=== PATIENT | female | born 1955 | race Caucasian/White ===

== ENCOUNTER 2023-05-25 09:45 | Outpatient (RCR) | payer MEDICARE, SELFPAY | END 2023-05-26 12:47 | disposition home or self-care (01) | LOC: PURB 09:45 | PROVIDERS: ATTENDING PHYSICIAN Internal Medicine Critical Care Medicine; FAMILY PHYSICIAN Internal Medicine | DX: J44.9 Chronic obstructive pulmonary disease, unspecified (principal) | CPT/HCPCS: 94625 ==

== ENCOUNTER 2023-06-22 09:30 | Outpatient (RCR) | payer MEDICARE, SELFPAY | END 2023-06-22 23:59 | disposition home or self-care (01) | LOC: PURB 09:30 | PROVIDERS: ATTENDING PHYSICIAN Internal Medicine Critical Care Medicine; FAMILY PHYSICIAN Internal Medicine | DX: J44.9 Chronic obstructive pulmonary disease, unspecified (principal) | CPT/HCPCS: 94625 ==

== ENCOUNTER 2023-07-22 09:30 | Outpatient (RCR) | payer MEDICARE, SELFPAY | END 2023-07-23 10:13 | disposition home or self-care (01) | LOC: PURB 09:30 | PROVIDERS: ATTENDING PHYSICIAN Internal Medicine Critical Care Medicine; FAMILY PHYSICIAN Internal Medicine | DX: J44.9 Chronic obstructive pulmonary disease, unspecified (principal) | CPT/HCPCS: 94625 ==

== ENCOUNTER → 2023-08-05 | Outpatient (REF) | payer MEDICARE, SELFPAY | LOC: DHSLP | PROVIDERS: ATTENDING PHYSICIAN Internal Medicine; FAMILY PHYSICIAN Internal Medicine | DX: G47.33 Obstructive sleep apnea (adult) (pediatric) (principal); G47.61 Periodic limb movement disorder; G47.00 Insomnia, unspecified; R09.02 Hypoxemia | CPT/HCPCS: 95810 ==

== ENCOUNTER → 2024-01-10 06:16 | Day surgery (SDC) | payer MEDICARE, SELFPAY | LOC: GI 06:16 | PROVIDERS: ATTENDING PHYSICIAN Internal Medicine Gastroenterology | DX: Z12.11 Encounter for screening for malignant neoplasm of colon (principal); D12.2 Benign neoplasm of ascending colon; K57.30 Diverticulosis of large intestine without perforation or abscess without bleeding; K64.8 Other hemorrhoids; Z98.0 Intestinal bypass and anastomosis status | CPT/HCPCS: 45385; 88305 ==

== ENCOUNTER → 2024-05-11 15:18 | Outpatient (REF) | payer MEDICARE, SELFPAY | LOC: WDC 15:18 | PROVIDERS: ATTENDING PHYSICIAN Internal Medicine | DX: Z12.31 Encounter for screening mammogram for malignant neoplasm of breast (principal) | CPT/HCPCS: 77063; 77067 ==

== ENCOUNTER 2024-09-11 09:41 | Inpatient (IN) | payer MEDICARE, SELFPAY ==
[2024-08-22 11:33] LABS: Hematocrit 37.5 % (37.0-47.0); Hemoglobin 12.7 g/dL (12.0-16.0); Mean Corp Hgb Conc. 33.9 g/dL (33.0-37.0); Mean Corpuscular Hgb 29.6 pg (27.0-31.0); Mean Corpuscular Volume 87.4 fL (81.0-99.0); Platelet Count 242 10^3/uL (130-400); Red Blood Cell Count 4.29 10^6/uL (4.20-5.40); Red Cell Dist. Width 12.5 % (11.5-14.5); White Blood Cell Count 9.3 10^3/uL (4.8-10.8)
[2024-08-22 11:52] LABS: ALT (SGPT) 15 U/L (0-35); AST (SGOT) 18 U/L (14-36); Albumin 3.9 g/dl (3.5-5.0); Alkaline Phosphatase 49 U/L (38-126); Blood Urea Nitrogen 15 mg/dl (7-17); Carbon Dioxide 26 mmol/L (22-30); Chloride 107 mmol/L (98-107); Glucose 95 mg/dl (70-99); Potassium 4.3 mmol/L (3.5-5.1); Sodium 143 mmol/L (135-145); Total Bilirubin 1.9 mg/dl (0.2-1.3); Total Protein 6.2 g/dl (6.3-8.2); eGFR > 60.00
[2024-08-22 13:30] LABS: Glycohemoglobin (HgbA1c) 4.9 % (4.0-5.6)
[2024-08-22 13:43] VITALS: BMI 35.2
[2024-08-24 11:57] VITALS: BMI 35.2
[2024-09-11] VITALS (12 sets, daily range): BP systolic 104–156; BP diastolic 64–93; PULSE 87; O2SAT 93; BMI 35.2
[2024-09-11] MEDS: TYLENOL 650 MG PO ×3 (09:53→19:40)
[2024-09-11] MEDS: CELEBREX 200 MG PO (09:53)
[2024-09-11] MEDS: NORMOSOL-R/PLASMALYTE-A 1000 IV ×2 (10:12→15:00)
--- NOTE | 2024-09-11 14:20 | W.PN.ORTHO ---
Today's Communication / Plan
-
d/c when stable
Assessment
.
Dressing:
Clean, dry and intact.
Assessment:
Due to chronic dyspnea on exertion, obstructive sleep apnea,
history of tobacco abuse with COPD, we will provide incentive----
spirometry, standing order nebulizers and IV Decadron for pain and
lung perfusion.
Plan
.
Surgery / Date: R TKA 09/11/24
DVT Prophylaxis: Aspirin
Activity:
Out of bed.
PT/OT
Discharge Plan: Home w/ Outpatient PT
Vital Signs and Labs
.
Vital Signs and Labs:
Lab Results
08/22/24 10:51
08/22/24 10:51
Temp Pulse Resp BP Pulse Ox
98.4 F 75 16 156/73 97
09/11/24 09:39 09/11/24 09:39 09/11/24 09:39 09/11/24 09:39 09/11/24 09:39
--- NOTE | 2024-09-11 14:25 | W.DS.TRANS ---
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
-
Discharge Instructions:
Discharge Diagnosis/Procedures R TKA 09/11/24
Diet As tolerated
Activity With Walker
Additional Activity Adequate hydration, minimize Oxy and wear TEDs
stockings to prevent low blood pressure/
dizziness
Driving Restrictions No driving
Bathing Restrictions OK to Shower
Other Services PT
Instructions:
Stand-Alone Forms: Total Hip/Knee Replacement D/C
Changes to Home Medications: Yes
Discharge Medications:
DC Medications w/original date entered in [employer]
levothyroxine 112 mcg tablet 112 mcg PO DAILY AT 0700 06/18/16
albuterol sulfate 90 mcg/actuation aerosol inhaler (Ventolin HFA) 2 puff inhalation Q4H PRN SOB 06/02/18
amlodipine 2.5 mg tablet 5 mg PO DAILY 09/05/20
atorvastatin 10 mg tablet 10 mg PO HS 08/18/24
escitalopram oxalate 20 mg tablet 20 mg PO DAILY 08/18/24
fluticasone fur. 200 mcg-umeclid 62.5 mcg-vilant 25 mcg inhalat.powder (Trelegy Ellipta) 1 inh inhalation HS 08/18/24
tirzepatide (weight loss) 10 mg/0.5 mL subcutaneous pen injector (Zepbound) 10 mg SC .Q Wednesday08/18/24
mupirocin 2 % topical ointment 1 applic topical BID infection prevention #1 tube 08/22/24
celecoxib 200 mg capsule 200 mg PO DAILY Anti-inflammatory #14 caps 08/23/24
dexamethasone 4 mg tablet 4 mg PO BID inflammation #6 tabs 08/23/24
famotidine 20 mg tablet 20 mg PO HS GI prophylaxis #30 tabs 08/23/24
gabapentin 300 mg capsule 300 mg PO HS sleep/pain #10 caps 08/23/24
ondansetron 4 mg disintegrating tablet 4 mg PO Q6H PRN n/v #20 tabs 08/23/24
oxycodone 5 mg tablet 5 mg PO Q6H PRN 1 tab moderate pain, 2 tabs severe pain #30 tabs 08/23/24
acetaminophen 325 mg tablet (Tylenol) 650 mg (2 x 325 mg) PO QID #1 tab 09/11/24
aspirin 325 mg tablet 325 mg PO DAILY blood clot prevention #1 tab 09/11/24
docusate sodium 100 mg capsule (Colace) 100 mg PO BID stool softner #1 cap 09/11/24
losartan 100 mg tablet (Cozaar) 100 mg PO DAILY #0 tabs 09/11/24
magnesium hydroxide 400 mg/5 mL oral suspension (Milk of Magnesia) 30 ml PO HS PRN constipation #1 mL 09/11/24
sennosides 8.6 mg tablet (Senokot) 17.2 mg (2 x 8.6 mg) PO BID laxative #2 tabs 09/11/24
Home Medication Changes
mupirocin 2 % topical ointment 1 applic topical BID infection prevention #1 tube 08/22/24
celecoxib 200 mg capsule 200 mg PO DAILY Anti-inflammatory #14 caps 08/23/24
dexamethasone 4 mg tablet 4 mg PO BID inflammation #6 tabs 08/23/24
famotidine 20 mg tablet 20 mg PO HS GI prophylaxis #30 tabs 08/23/24
gabapentin 300 mg capsule 300 mg PO HS sleep/pain #10 caps 08/23/24
ondansetron 4 mg disintegrating tablet 4 mg PO Q6H PRN n/v #20 tabs 08/23/24
oxycodone 5 mg tablet 5 mg PO Q6H PRN 1 tab moderate pain, 2 tabs severe pain #30 tabs 08/23/24
acetaminophen 325 mg tablet (Tylenol) 650 mg (2 x 325 mg) PO QID #1 tab 09/11/24
aspirin 325 mg tablet 325 mg PO DAILY blood clot prevention #1 tab 09/11/24
docusate sodium 100 mg capsule (Colace) 100 mg PO BID stool softner #1 cap 09/11/24
losartan 100 mg tablet (Cozaar) 100 mg PO DAILY #0 tabs 09/11/24
magnesium hydroxide 400 mg/5 mL oral suspension (Milk of Magnesia) 30 ml PO HS PRN constipation #1 mL 09/11/24
sennosides 8.6 mg tablet (Senokot) 17.2 mg (2 x 8.6 mg) PO BID laxative #2 tabs 09/11/24
Pending Results: No
[2024-09-11] MEDS: DILAUDID 0.5 MG IV (15:11)
[2024-09-11] MEDS: ROXICODONE 5 MG PO (15:30)
[2024-09-11] MEDS: SYNTHROID PO (16:34)
[2024-09-11] MEDS: LEXAPRO 20 MG PO (16:34)
--- NOTE | 2024-09-11 16:47 | PTCARENOTE ---
Pt arrived to [facility] from PACU in a bed. Pt on 2L of O2 at 95%. Right knee with primaseal dressing and small shadowing. IVF infusing at 100cc. Pt oriented to room and call diego. Bed locked and in lowest position. Care ongoing.
[2024-09-11] MEDS: ASPIRIN 325 MG PO (17:13)
[2024-09-11] MEDS: ROXICODONE 10 MG PO (19:02)
[2024-09-11] MEDS: COLACE 100 MG PO (19:39)
[2024-09-11] MEDS: SENOKOT 17.2 MG PO (19:40)
[2024-09-11] MEDS: SYMBICORT 160/4.5 MCG INHALER 2 PUFF INH (19:41)
[2024-09-11] MEDS: DECADRON 4 MG IV (19:41)
[2024-09-11] MEDS: DUONEB 3 ML INH (19:41)
[2024-09-11] MEDS: PEPCID 20 MG PO (21:04)
[2024-09-11] MEDS: LIPITOR 10 MG PO (21:04)
[2024-09-11] MEDS: BACTROBAN 2% OINTMENT 1 APPLIC NASAL (21:04)
[2024-09-11] MEDS: NEURONTIN 300 MG PO (21:04)
[2024-09-11] MEDS: ANCEF 5 IV (21:04)
[2024-09-12] MEDS: TYLENOL 650 MG PO ×3 (00:15→07:52)
[2024-09-12 03:00] VITALS: BP 132/84
[2024-09-12] MEDS: ROXICODONE 5 MG PO (04:43)
[2024-09-12] MEDS: ANCEF 5 IV (05:59)
[2024-09-12] MEDS: SYNTHROID 112 MCG PO (05:59)
[2024-09-12] MEDS: DUONEB 3 ML INH (07:19)
[2024-09-12] MEDS: SYMBICORT 160/4.5 MCG INHALER 2 PUFF INH (07:20)
[2024-09-12] MEDS: SPIRIVA RESPIMAT 2.5 MCG 2 PUFF INH (07:20)
[2024-09-12 07:32] VITALS: BP 115/74
[2024-09-12] MEDS: LEXAPRO 20 MG PO (07:52)
[2024-09-12] MEDS: CELEBREX 200 MG PO (07:52)
[2024-09-12] MEDS: ASPIRIN 325 MG PO (07:52)
[2024-09-12] MEDS: SENOKOT 17.2 MG PO (07:52)
[2024-09-12] MEDS: BACTROBAN 2% OINTMENT 1 APPLIC NASAL (07:53)
[2024-09-12] MEDS: COLACE 100 MG PO (07:53)
[2024-09-12] MEDS: DECADRON 4 MG IV (07:53)
[2024-09-12] MEDS: COZAAR 25 MG PO (08:02)
[2024-09-12] MEDS: NORVASC 5 MG PO (08:02)
[2024-09-12] MEDS: ROXICODONE 10 MG PO (08:52)
[2024-09-12 09:44] VITALS: BP 126/67; PULSE 78; O2SAT 96
--- NOTE | 2024-09-12 09:51 | CM ---
CM following re: discharge planning.
Reviewed pt's chart, met with pt.
Pt is a 69 year old female, admitted with primary dx of POD#1 R TKA. Per MD pt is doing well and will be discharged home today and outpatient therapy recommended. Pt is aware, expressed her agreement and she stated she has an appointment for
outpatient therapy at [facility] tomorrow at 11:00 a.m. IMM reviewed, placed on chart, pt has a copy. Pt stated he will transport home
Pt reports she live with 2SH, 6 steps to enter, has supportive children. Pt reports she has a walker, cane, raised toilet seat.
Please provide as script for outpatient therapy: PT, OT
PCP: Olivia Cesar
Pharmacy: [facility].
D/C plan: home with outpatient therapy at [facility] and family support. to transport.
--- NOTE | 2024-09-12 10:05 | W.PN.ORTHO ---
Today's Communication / Plan
-
d/c
Assessment
.
Distal Motor Intact: Yes
Dressing:
Clean, dry and intact.
Assessment:
Due to chronic dyspnea on exertion, obstructive sleep apnea,
history of tobacco abuse with COPD, we will provide incentive----
spirometry, standing order nebulizers and IV Decadron for pain and
lung perfusion.
--O2 sats stable on RA
Plan
.
Surgery / Date: R TKA 09/11/24
DVT Prophylaxis: Aspirin
Activity:
Out of bed.
PT/OT
Discharge Plan: Home w/ Outpatient PT
Subjective
.
.:
Patient resting comfortably.
Vital Signs and Labs
.
Vital Signs and Labs:
Lab Results
08/22/24 10:51
08/22/24 10:51
Temp Pulse Resp BP Pulse Ox
98.6 F 79 17 150/66 97
09/12/24 07:32 09/12/24 08:02 09/12/24 07:32 09/12/24 08:02 09/12/24 08:45
Non-invasive Hgb result: 12
Physical Exam
-
HEENT: No pallor, cyanosis, or jaundice. Throat clear.
NECK: Supple. No JVD.
RESPIRATORY: Lungs clear to auscultation.
CVS: S1, S2 normal. RRR.� No murmur, rub or gallop.
ABDOMEN: Soft, non-tender. No distension. BS+/normal.
EXTREMITIES: strength equal, no calf pain with palpation
UNSCRAMBLER: AOx3. No focal deficits. 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
[2024-09-12 11:14] VITALS: BP 128/66; PULSE 71; O2SAT 94
[2024-09-12 11:22] VITALS: BP 126/64
== END 2024-09-12 12:31 | disposition home or self-care (01) | DRG 470 ==
LOC: 2 SOUTH 09:41
PROVIDERS: ADMITTING PHYSICIAN Specialist; FAMILY PHYSICIAN Internal Medicine
PROC: 0SRC0J9 Replacement of Right Knee Joint with Synthetic Substitute, Cemented, Open Approach (ICD-10-PCS; 2024-09-11)
DX: M17.11 Unilateral primary osteoarthritis, right knee (principal); Z68.35 Body mass index [BMI] 35.0-35.9, adult; E66.9 Obesity, unspecified; Z96.643 Presence of artificial hip joint, bilateral; G47.33 Obstructive sleep apnea (adult) (pediatric); Z87.891 Personal history of nicotine dependence; J44.9 Chronic obstructive pulmonary disease, unspecified; E03.9 Hypothyroidism, unspecified; F32.A Depression, unspecified; F41.9 Anxiety disorder, unspecified; E78.5 Hyperlipidemia, unspecified; I10 Essential (primary) hypertension
CPT/HCPCS: 36415; 73560; 80053; 83036; 85027; 87070; 94640; 97110; 97116; 97162; 97167; 97530; C1713; C1776

== ENCOUNTER 2025-01-08 11:25 | Inpatient (IN) | payer MEDICARE, SELFPAY ==
--- NOTE | 2024-12-12 14:31 | CM ---
Demographics: confirmed
Living situation: lives with , independent
Support Person Post Operatively:
History of
VN: NO
SNF: NO
Outpatient: [facility], scheduled 01/10
Has patient purchased required equipment: patient has equipment from previous surgery
PCP: Dr. Olivia Cesar
Pharmacy: [facility]
Post Operative Discharge Plan: Home with for support, [facility] scheduled for 01/10
[2024-12-19 11:40] LABS: Hematocrit 39.3 % (37.0-47.0); Hemoglobin 12.7 g/dL (12.0-16.0); Mean Corp Hgb Conc. 32.3 g/dL (33.0-37.0); Mean Corpuscular Volume 85.4 fL (81.0-99.0); Platelet Count 250 10^3/uL (130-400); Red Cell Dist. Width 13.4 % (11.5-14.5)
[2024-12-19 12:06] LABS: ALT (SGPT) 16 U/L (0-35); AST (SGOT) 20 U/L (14-36); Albumin 4.5 g/dl (3.5-5.0); Alkaline Phosphatase 57 U/L (38-126); Blood Urea Nitrogen 19 mg/dl (7-17); Calcium 10.2 mg/dl (8.4-10.2); Carbon Dioxide 27 mmol/L (22-30); Chloride 103 mmol/L (98-107); Glucose 90 mg/dl (70-99); Potassium 5.1 mmol/L (3.5-5.1); Sodium 137 mmol/L (135-145); Total Protein 6.8 g/dl (6.3-8.2); eGFR > 60.00
[2024-12-19 13:22] LABS: Glycohemoglobin (HgbA1c) 5.0 % (4.0-5.6)
[2024-12-19 14:18] VITALS: BMI 32.0
[2024-12-19 16:06] VITALS: BMI 32.0
[2025-01-08] VITALS (12 sets, daily range): BP systolic 104–132; BP diastolic 60–88; PULSE 84–89; O2SAT 90
[2025-01-08] MEDS: TYLENOL 650 MG PO ×3 (09:41→21:07)
--- NOTE | 2025-01-08 09:41 | W.PN.ORTHO ---
Today's Communication / Plan
-
d/c am if stable
Assessment
.
Dressing:
Clean, dry and intact.
Assessment:
RENNER
LAKIA
COPD/hx tobacco
--nebs, incentive spirometry, cpap, IV decadron-monitor sats
Plan
.
Surgery / Date: L KISHA Carney 01/08/25
DVT Prophylaxis: Aspirin
Activity:
Out of bed.
PT/OT
Discharge Plan: Home w/ Outpatient PT
Vital Signs and Labs
.
Vital Signs and Labs:
Lab Results
12/19/24 11:09
12/19/24 11:09
[2025-01-08] MEDS: CELEBREX 200 MG PO (09:42)
--- NOTE | 2025-01-08 09:55 | W.DS.TRANS ---
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
-
Discharge Instructions:
Discharge Diagnosis/Procedures L TKA Dr Carney 01/08/25
Diet As tolerated
Activity With Walker
Driving Restrictions No driving
Bathing Restrictions OK to Shower
Other Services PT
Instructions:
Stand-Alone Forms: Total Hip/Knee Replacement D/C
Changes to Home Medications: Yes
Discharge Medications:
DC Medications w/original date entered in [employer]
levothyroxine 112 mcg tablet 112 mcg PO DAILY AT 0700 Thyroid 06/18/16
albuterol sulfate 90 mcg/actuation aerosol inhaler (Ventolin HFA) 2 puff inhalation Q4H PRN SOB 06/02/18
atorvastatin 10 mg tablet 10 mg PO HS High Cholesterol 08/18/24
escitalopram oxalate 20 mg tablet 20 mg PO DAILY Mental Health/Anxiety 08/18/24
fluticasone fur. 200 mcg-umeclid 62.5 mcg-vilant 25 mcg inhalat.powder (Trelegy Ellipta) 1 inh inhalation HS Lung/Breathing Issues 08/18/24
tirzepatide (weight loss) 10 mg/0.5 mL subcutaneous pen injector (Zepbound) 10 mg SC .Q WEDNESDAY DIABETES/WEIGHT LOSS 08/18/24
amlodipine 5 mg tablet 5 mg PO DAILY 12/15/24
celecoxib 200 mg capsule 200 mg PO DAILY Anti-inflammatory #14 caps 12/19/24
dexamethasone 4 mg tablet 4 mg PO BID inflammation #6 tabs 12/19/24
famotidine 20 mg tablet 20 mg PO HS GI prophylaxis #30 tabs 12/19/24
gabapentin 300 mg capsule 300 mg PO HS sleep/pain #10 caps 12/19/24
mupirocin 2 % topical ointment 1 applic topical BID infection prevention #1 tube 12/19/24
oxycodone 5 mg tablet 5 mg PO Q6H PRN 1 tab moderate pain, 2 tabs severe pain #30 tabs 12/19/24
acetaminophen 325 mg tablet (Tylenol) 650 mg (2 x 325 mg) PO QID #1 tab 01/08/25
aspirin 325 mg tablet 325 mg PO DAILY blood clot prevention #1 tab 01/08/25
docusate sodium 100 mg capsule (Colace) 100 mg PO BID stool softner #1 cap 01/08/25
losartan 100 mg tablet (Cozaar) 100 mg PO DAILY #0 tabs 01/08/25
magnesium hydroxide 400 mg/5 mL oral suspension (Milk of Magnesia) 30 ml PO HS PRN constipation #1 mL 01/08/25
sennosides 8.6 mg tablet (Senokot) 17.2 mg (2 x 8.6 mg) PO BID laxative #2 tabs 01/08/25
trazodone 50 mg tablet 50 mg PO HS 01/08/25
Home Medication Changes
celecoxib 200 mg capsule 200 mg PO DAILY Anti-inflammatory #14 caps 12/19/24
dexamethasone 4 mg tablet 4 mg PO BID inflammation #6 tabs 12/19/24
famotidine 20 mg tablet 20 mg PO HS GI prophylaxis #30 tabs 12/19/24
gabapentin 300 mg capsule 300 mg PO HS sleep/pain #10 caps 12/19/24
mupirocin 2 % topical ointment 1 applic topical BID infection prevention #1 tube 12/19/24
oxycodone 5 mg tablet 5 mg PO Q6H PRN 1 tab moderate pain, 2 tabs severe pain #30 tabs 12/19/24
acetaminophen 325 mg tablet (Tylenol) 650 mg (2 x 325 mg) PO QID #1 tab 01/08/25
aspirin 325 mg tablet 325 mg PO DAILY blood clot prevention #1 tab 01/08/25
docusate sodium 100 mg capsule (Colace) 100 mg PO BID stool softner #1 cap 01/08/25
losartan 100 mg tablet (Cozaar) 100 mg PO DAILY #0 tabs 01/08/25
magnesium hydroxide 400 mg/5 mL oral suspension (Milk of Magnesia) 30 ml PO HS PRN constipation #1 mL 01/08/25
sennosides 8.6 mg tablet (Senokot) 17.2 mg (2 x 8.6 mg) PO BID laxative #2 tabs 01/08/25
Pending Results: No
[2025-01-08] MEDS: ROXICODONE 5 MG PO (13:53)
[2025-01-08] MEDS: NORMOSOL-R/PLASMALYTE-A 1000 IV (14:27)
--- NOTE | 2025-01-08 16:00 | PTCARENOTE ---
report received from [facility]. aquacel dressing to l knee w/ scant drainage. monica @ 100cc/hr. vss. plan of care updated.
[2025-01-08] MEDS: DECADRON 4 MG IV (16:41)
[2025-01-08] MEDS: ASPIRIN 325 MG PO (16:41)
[2025-01-08] MEDS: DILAUDID 0.5 MG IV (17:02)
[2025-01-08] MEDS: SYMBICORT 160/4.5 MCG INHALER 2 PUFF INH (19:54)
[2025-01-08] MEDS: DUONEB 3 ML INH (19:54)
[2025-01-08] MEDS: SENOKOT 17.2 MG PO (21:07)
[2025-01-08] MEDS: ANCEF 5 IV (21:07)
[2025-01-08] MEDS: COLACE 100 MG PO (21:07)
[2025-01-08] MEDS: ROXICODONE 10 MG PO (21:08)
[2025-01-08] MEDS: NEURONTIN 300 MG PO (21:08)
[2025-01-08] MEDS: DESYREL 50 MG PO (21:08)
[2025-01-08] MEDS: PEPCID 20 MG PO (21:08)
[2025-01-08] MEDS: BACTROBAN 2% OINTMENT 1 APPLIC NASAL (21:21)
[2025-01-09] MEDS: TYLENOL 650 MG PO ×3 (01:01→07:59)
[2025-01-09] MEDS: ROXICODONE 10 MG PO ×2 (01:41→08:00)
[2025-01-09] MEDS: DECADRON 4 MG IV (05:02)
[2025-01-09] MEDS: ANCEF 5 IV (05:02)
[2025-01-09] MEDS: SYNTHROID 112 MCG PO (05:04)
[2025-01-09] MEDS: DUONEB 3 ML INH (07:22)
[2025-01-09] MEDS: SYMBICORT 160/4.5 MCG INHALER 2 PUFF INH (07:22)
[2025-01-09] MEDS: SENOKOT 17.2 MG PO (07:59)
[2025-01-09] MEDS: CELEBREX 200 MG PO (07:59)
[2025-01-09] MEDS: ASPIRIN 325 MG PO (07:59)
[2025-01-09 08:00] VITALS: BP 132/67
[2025-01-09] MEDS: LEXAPRO 20 MG PO (08:00)
[2025-01-09] MEDS: COLACE 100 MG PO (08:00)
[2025-01-09] MEDS: LIPITOR 10 MG PO (08:01)
[2025-01-09] MEDS: COZAAR 50 MG PO (08:01)
[2025-01-09] MEDS: NORVASC 5 MG PO (08:01)
[2025-01-09] MEDS: BACTROBAN 2% OINTMENT 1 APPLIC NASAL (08:02)
--- NOTE | 2025-01-09 08:31 | W.PN.ORTHO ---
Today's Communication / Plan
-
D/c this morning if stable per PT and OT.
Assessment
.
Distal Motor Intact: Yes
Dressing:
Small areas of old bleeding along incision line.
Assessment:
L knee OA s/p L TKA w/ Dr Carney 01/08/25
- EARLY DISCHARGE
- s/p R RIKA, 2018, L RIKA, 2020, and R TKA 08/2024, by Dr Carney
HTN - + parameters - BPs overall stable
COPD
Pulmonary nodule
Obstructive sleep apnea
Chronic RENNER
- SpO2 stable w/ nebs, Decadron, continuation of CPAP, and IS
HLD
History of diverticulitis with abscess s/p colon resection
Hypothyroidism
Depression and anxiety
Obesity, BMI 32.0
History of tobacco abuse
Plan
.
Surgery / Date: L TKA w/ Dr Carney 01/08/25
DVT Prophylaxis: Aspirin
Activity:
Out of bed.
PT/OT
Discharge Plan: Home w/ Outpatient PT
Subjective
.
.:
Patient resting comfortably in her chair.
L knee pain overall well controlled w/ current pain meds. Will add Lidocaine patches, however, per pt preference.
Denies any new significant complaints.
Eager for early d/c today.
Vital Signs and Labs
.
Vital Signs and Labs:
Lab Results
12/19/24 11:09
12/19/24 11:09
Temp Pulse Resp BP Pulse Ox
98.1 F 89 16 112/60 95
01/08/25 23:32 01/09/25 07:25 01/09/25 07:25 01/08/25 23:32 01/09/25 07:25
Non-invasive Hgb result: 11.9
Physical Exam
-
HEENT: No pallor, cyanosis, or jaundice. Throat clear.
NECK: Supple. No JVD.
RESPIRATORY: Lungs clear to auscultation.
CVS: S1, S2 normal. RRR.
ABDOMEN: Soft, non-tender. No distension. Obese.
EXTREMITIES: Strength equal, no calf pain with palpation/dorsiflexion. Calves soft.
FREELANCE DESIGNER: AOx3. No focal deficits. maintainer operator grossly intact
[2025-01-09 08:51] VITALS: BP 132/67; PULSE 86; O2SAT 95
[2025-01-09 09:31] VITALS: BP 144/62; PULSE 96; O2SAT 94
[2025-01-09] MEDS: LIDOCAINE 4% PATCH 2 PATCH TOPICAL (09:48)
--- NOTE | 2025-01-09 09:55 | W.DS.TRANS ---
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
-
Discharge Instructions:
Discharge Diagnosis/Procedures L knee OA s/p L TKA w/ Dr Carney 01/08/25
Diet Regular
Additional Diets Adequate hydration, minimize opioids, and wear
TEDs stockings to prevent low blood pressure/
dizziness.
Activity With Walker,As tolerated
Driving Restrictions Not until seen by your Dr
Bathing Restrictions OK to Shower
Other Services PT
Wound Care Dressing to be removed 1 week post-surgery.
[place] to be removed in 2 weeks at follow-up
with surgeon's office.
Instructions:
Stand-Alone Forms: Total Hip/Knee Replacement D/C
Changes to Home Medications: Yes
Discharge Medications:
DC Medications w/original date entered in [employer]
levothyroxine 112 mcg tablet 112 mcg PO DAILY AT 0700 Thyroid 06/18/16
albuterol sulfate 90 mcg/actuation aerosol inhaler (Ventolin HFA) 2 puff inhalation Q4H PRN SOB 06/02/18
atorvastatin 10 mg tablet 10 mg PO HS High Cholesterol 08/18/24
escitalopram oxalate 20 mg tablet 20 mg PO DAILY Mental Health/Anxiety 08/18/24
fluticasone fur. 200 mcg-umeclid 62.5 mcg-vilant 25 mcg inhalat.powder (Trelegy Ellipta) 1 inh inhalation HS Lung/Breathing Issues 08/18/24
tirzepatide (weight loss) 10 mg/0.5 mL subcutaneous pen injector (Zepbound) 10 mg SC .Q WEDNESDAY DIABETES/WEIGHT LOSS 08/18/24
celecoxib 200 mg capsule 200 mg PO DAILY Anti-inflammatory #14 caps 12/19/24
dexamethasone 4 mg tablet 4 mg PO BID inflammation #6 tabs 12/19/24
famotidine 20 mg tablet 20 mg PO HS GI prophylaxis #30 tabs 12/19/24
mupirocin 2 % topical ointment 1 applic topical BID infection prevention #1 tube 12/19/24
oxycodone 5 mg tablet 5 mg PO Q6H PRN 1 tab moderate pain, 2 tabs severe pain #30 tabs 12/19/24
docusate sodium 100 mg capsule (Colace) 100 mg PO BID stool softner #1 cap 01/08/25
magnesium hydroxide 400 mg/5 mL oral suspension (Milk of Magnesia) 30 ml PO HS PRN constipation #1 mL 01/08/25
sennosides 8.6 mg tablet (Senokot) 17.2 mg (2 x 8.6 mg) PO BID laxative #2 tabs 01/08/25
trazodone 50 mg tablet 50 mg PO HS Sleep 01/08/25
acetaminophen 325 mg tablet 650 mg (2 x 325 mg) PO Q4HWA #60 tabs 01/09/25
amlodipine 5 mg tablet 5 mg PO DAILY Blood Pressure #1 tab 01/09/25
aspirin 325 mg tablet 325 mg PO DAILY Blood clot prevention/tx #30 tabs 01/09/25
gabapentin 300 mg capsule 300 mg PO HS neuropathic pain #10 caps 01/09/25
lidocaine 4 % topical patch 2 patch topical DAILY #15 ea 01/09/25
losartan 100 mg tablet (Cozaar) 100 mg PO DAILY #0 tabs 01/09/25
ondansetron HCl 4 mg tablet 4 mg PO Q6H PRN nausea and vomiting #30 tabs 01/09/25
Home Medication Changes
celecoxib 200 mg capsule 200 mg PO DAILY Anti-inflammatory #14 caps 12/19/24
dexamethasone 4 mg tablet 4 mg PO BID inflammation #6 tabs 12/19/24
famotidine 20 mg tablet 20 mg PO HS GI prophylaxis #30 tabs 12/19/24
mupirocin 2 % topical ointment 1 applic topical BID infection prevention #1 tube 12/19/24
oxycodone 5 mg tablet 5 mg PO Q6H PRN 1 tab moderate pain, 2 tabs severe pain #30 tabs 12/19/24
docusate sodium 100 mg capsule (Colace) 100 mg PO BID stool softner #1 cap 01/08/25
magnesium hydroxide 400 mg/5 mL oral suspension (Milk of Magnesia) 30 ml PO HS PRN constipation #1 mL 01/08/25
sennosides 8.6 mg tablet (Senokot) 17.2 mg (2 x 8.6 mg) PO BID laxative #2 tabs 01/08/25
acetaminophen 325 mg tablet 650 mg (2 x 325 mg) PO Q4HWA #60 tabs 01/09/25
aspirin 325 mg tablet 325 mg PO DAILY Blood clot prevention/tx #30 tabs 01/09/25
gabapentin 300 mg capsule 300 mg PO HS neuropathic pain #10 caps 01/09/25
lidocaine 4 % topical patch 2 patch topical DAILY #15 ea 01/09/25
ondansetron HCl 4 mg tablet 4 mg PO Q6H PRN nausea and vomiting #30 tabs 01/09/25
Pending Results: No
== END 2025-01-09 10:22 | disposition home or self-care (01) | DRG 470 ==
LOC: 2 SOUTH 11:25
PROVIDERS: ADMITTING PHYSICIAN Specialist; FAMILY PHYSICIAN Internal Medicine
PROC: 0SRD0J9 Replacement of Left Knee Joint with Synthetic Substitute, Cemented, Open Approach (ICD-10-PCS; 2025-01-08)
PROC: 5A09357 Assistance with Respiratory Ventilation, Less than 24 Consecutive Hours, Continuous Positive Airway Pressure (ICD-10-PCS; 2025-01-08)
DX: M17.12 Unilateral primary osteoarthritis, left knee (principal); E66.9 Obesity, unspecified; Z68.32 Body mass index [BMI] 32.0-32.9, adult; G47.33 Obstructive sleep apnea (adult) (pediatric); R91.1 Solitary pulmonary nodule; Z72.0 Tobacco use; J44.9 Chronic obstructive pulmonary disease, unspecified; E03.9 Hypothyroidism, unspecified; F32.A Depression, unspecified; F41.9 Anxiety disorder, unspecified; I10 Essential (primary) hypertension; E78.5 Hyperlipidemia, unspecified; Z96.643 Presence of artificial hip joint, bilateral
CPT/HCPCS: 36415; 73560; 80053; 83036; 85027; 87070; 94640; 94660; 97110; 97116; 97162; 97166; 97535; C1713; C1776

== ENCOUNTER → 2025-03-26 11:21 | Outpatient (REF) | payer MEDICARE, SELFPAY | LOC: RAD 11:21 | PROVIDERS: ATTENDING PHYSICIAN Specialist; FAMILY PHYSICIAN Internal Medicine | DX: Z96.82 Presence of neurostimulator (principal) | CPT/HCPCS: 70360; 71046 ==

== ENCOUNTER → 2025-03-30 16:00 | Outpatient (REF) | payer MEDICARE, SELFPAY | LOC: PAVMRI 16:00 | PROVIDERS: ATTENDING PHYSICIAN Specialist; FAMILY PHYSICIAN Internal Medicine | DX: M54.16 Radiculopathy, lumbar region (principal) | CPT/HCPCS: 72148 ==

== ENCOUNTER → 2025-04-25 12:00 | Outpatient (REF) | payer MEDICARE, SELFPAY | LOC: DHSLP 12:00 | PROVIDERS: ATTENDING PHYSICIAN Internal Medicine; FAMILY PHYSICIAN Internal Medicine | DX: G47.30 Sleep apnea, unspecified (principal); R06.83 Snoring | CPT/HCPCS: 95800 ==